=== PATIENT | male | born 1975 | race Caucasian/White ===

== ENCOUNTER 2019-02-18 22:13 | Emergency (ER) | payer OTHER, MEDICAID, SELFPAY ==
[2019-02-18 22:25] VITALS: BP 161/120; PULSE 98; RESP 17; TEMP 36.9; O2SAT 99; BMI 29.0
--- NOTE | 2019-02-18 22:45 | ED_ITS ---
HPI - Skin/Abscess/Foreign Bdy General Chief complaint: Skin/Abscess/Foreign Body Stated complaint: rash all over his body for several days Time Seen by Provider: 02/18/19 22:37 Source: patient Mode of arrival: Family Vehicle Limitations: no limitations History of Present Illness HPI narrative: 43-year-old otherwise healthy male here for evaluation of a rash. Patient states that his symptoms started a couple days ago on the been worsening since then. No new exposures that he knows of. No new medications. States the rash is itchy. It is on his body to include his torso and face and genital region and lower extremities. Has not tried anything for symptoms prior to arrival Related Data Previous Rx's Medication Instructions Recorded prednisone 40 mg PO DAILY 7 Days #14 tab 02/18/19 Review of Systems Eyes Eyes: Reports itchy eyes ENT Ears, Nose, Mouth, and Throat: Denies lip swelling, Denies throat swelling and Denies tongue swelling Cardiovascular Cardiovascular: Denies chest pain and Denies dyspnea Respiratory Respiratory: Denies dyspnea Gastrointestinal Gastrointestinal: Denies nausea and Denies vomiting Musculoskeletal Musculoskeletal: Denies myalgias and Denies arthralgias Integumentary/Breasts Skin/Breast: Reports pruritus, Reports lesions and Reports rash Neurologic Neurologic: Denies behavioral changes Psychiatric Psychiatric: Denies behavioral changes Hematologic/Lymphatic Hematologic/Lymphatic: Denies easy bleeding and Denies easy bruising Allergic/Immunologic Allergic/Immunologic: Denies urticaria, Reports itchy eyes, Denies lip swelling, Denies throat swelling and Denies tongue swelling Patient History Medical History (Reviewed 02/19/19 @ 01:58 PDT by Som Pantoja DO) Patient denies medical problems (Acute) Social History (Reviewed 02/19/19 @ 01:58 PDT by Som Pantoja DO) Smoking Status: Current every day smoker tobacco type: cigarettes Substance Use Type: marijuana Exam Initial Vital Signs Initial Vital Signs: Vital Signs Temperature 98.4 F 02/18/19 22:25 Pulse Rate 98 H 02/18/19 22:25 Respiratory Rate 17 02/18/19 22:25 Blood Pressure 161/120 H 02/18/19 22:25 Pulse Oximetry 99 02/18/19 22:25 Const General: cooperative, No comfortable (Uncomfortable), well developed and well groomed Orientation: alert, awake and oriented x3 HENMT Head: normal to inspection and normocephalic Resp Effort & Inspection: normal respiratory effort Auscultation: clear to auscultation bilaterally Cardio Rate: regular rate Rhythm: regular rhythm Skin Other: Rash located systemically. Some crusting. No urticaria. No vesicles. Neuro General: alert and awake Cognition: normal cognition Speech: speech normal Psych Appearance: grossly normal and well kempt Course Orders Ordered: Discontinued Medications Diphenhydramine HCl (Benadryl) 50 mg IV NOW ONE Stop: 02/18/19 22:46 Last Admin: 02/18/19 23:22 Dose: Not Given Documented by: ROSHAN Diphenhydramine HCl (Benadryl) 50 mg PO NOW ONE Stop: 02/18/19 23:10 Last Admin: 02/18/19 23:11 Dose: 50 mg Documented by: ROSHAN Methylprednisolone (Solu-Medrol 125 Mg Vial) 125 mg IV NOW ONE Stop: 02/18/19 22:46 Last Admin: 02/18/19 23:22 Dose: Not Given Documented by: ROSHAN Prednisone (Deltasone) 40 mg PO NOW ONE Stop: 02/18/19 23:10 Last Admin: 02/18/19 23:11 Dose: 40 mg Documented by: ROSHAN Vital Signs Vital signs: Vital Signs - 8 hr 02/18/19 22:25 02/19/19 00:08 Temperature 98.4 F 98.0 F Pulse Rate 98 H 82 Respiratory Rate 17 16 Blood Pressure 161/120 H 112/69 Pulse Oximetry 99 96 MDM - Skin/Abscess/Foreign Bdy MDM Narrative Medical decision making narrative: Patient with systemic rash however is not located on the mucous membranes. Does not fit any specific pattern to include Lyme disease, [place] spotted fever, measles, chickenpox, zoster. Unable to obtain an IV on the patient so he was given oral Benadryl and steroids. This seemed to improve his itching quite a bit. Will send home with a short course of steroids. Feel there is no indication for antibiotics. Patient expressed understanding and agreement with plan. Discharge Plan Departure Patient Disposition: Home Clinical Impression: Rash Discharge Date/Time: 02/19/19 00:10 Instructions: DI for Rash Activity Restrictions/Additional Instructions: Take the steroids as directed. If you are interested you can contact [phone] to help you establish a primary provider here in the area. Return to the emergency department for any new or worsening symptoms Prescriptions: New prednisone 20 mg tablet 40 mg PO DAILY 7 Days Qty: 14 RF: 0
[2019-02-18] MEDS: diphenhydrAMINE 25 MG TABLET 50 MG PO (23:11)
[2019-02-18] MEDS: predniSONE 20 MG TABLET 40 MG PO (23:11)
--- NOTE | 2019-02-18 23:21 | PC.NURSE ---
Mitzy RN attempted 3x for IV access. This RN did not see anything confident in attempting to place IV in. Patient states he is generally a hard IV start. Provider aware of difficulty obtaining IV. Orders changed to oral medications
[2019-02-19 00:08] VITALS: BP 112/69; PULSE 82; RESP 16; TEMP 36.7; O2SAT 96
== END 2019-02-19 00:10 | disposition home or self-care (01) ==
PROVIDERS: Emergency Provider Emergency Medicine
DX: R21 Rash and other nonspecific skin eruption (principal)
CPT/HCPCS: 99282; 99283

== ENCOUNTER 2019-02-26 01:56 | Emergency (ER) | payer OTHER, MEDICAID, SELFPAY ==
[2019-02-26 02:04] VITALS: BP 145/94; PULSE 105; RESP 16; TEMP 36.6; O2SAT 100; BMI 29.0
--- NOTE | 2019-02-26 02:27 | ED_ITS ---
HPI - Skin/Abscess/Foreign Bdy General Chief complaint: Skin/Abscess/Foreign Body Stated complaint: 103 temp last night, rash all over Time Seen by Provider: 02/26/19 01:59 Source: patient Mode of arrival: Ambulatory Limitations: no limitations History of Present Illness HPI narrative: 43-year-old male smoker with history of IV drug abuse presents with his significant other and a chief complaint of a red, painful, swollen rash on the medial aspect of his right leg which popped up yesterday. Additionally he has some painful lymph nodes in his right groin and had a fever as high as 103 yesterday. He has taken no medications today and temperature is 97?. He does feel largely better but wanted to be checked out. He denies any runny nose, sore throat or cough. He has had no nausea or vomiting. He was seen recently for an itchy rash and had been given prednisone complaint: rash and discoloration Onset (ago): hour(s) Tetanus up to date: yes Location: RLE Severity: moderate Quality: aching Pain Consistency: constant Relieving factors: none Exacerbating factors: movement Associated symptoms: fever Related Data Previous Rx's Medication Instructions Recorded prednisone 40 mg PO DAILY 7 Days #14 tab 02/18/19 doxycycline hyclate 100 mg PO BID #20 tab 02/26/19 Allergies Allergy/AdvReac Type Severity Reaction Status Date / Time No Known Drug Allergies Allergy Verified 02/26/19 02:09 Review of Systems Constitutional Constitutional: Reports chills, Reports fever(s), Denies frequent falls, Denies lethargy and Denies weakness Eyes Eyes: Denies change in vision, Denies eye discharge, Denies irritation and Denies loss of vision ENT Ears, Nose, Mouth, and Throat: Denies change in voice, Denies dizziness, Denies neck pain, Denies sore throat and Denies throat swelling Cardiovascular Cardiovascular: Denies chest pain, Denies irregular heart rhythm, Denies lightheadedness, Denies palpitations, Denies dyspnea, Denies dyspnea on exertion and Denies orthopnea Respiratory Respiratory: Denies cough, Denies dyspnea, Denies dyspnea on exertion and Denies wheezing Gastrointestinal Gastrointestinal: Denies abdominal pain, Denies change in bowel habits, Denies diarrhea, Denies nausea and Denies vomiting Genitourinary Genitourinary: Denies hematuria, Denies flank pain, Denies urinary incontinence and Denies urinary urgency Musculoskeletal Musculoskeletal: Denies back pain, Denies muscle weakness, Denies neck pain, Denies numbness and Denies tingling Integumentary/Breasts Skin/Breast: Reports pruritus, Reports erythema, Reports rash, Reports skin p ain, Reports skin swelling and Denies wounds Neurologic Neurologic: Denies behavioral changes, Denies confusion, Denies dizziness, Denies frequent falls, Denies loss of vision, Denies numbness, Denies tingling and Denies weakness Psychiatric Psychiatric: Denies anxiety, Denies behavioral changes, Denies confusion, Denies depression, Denies homicidal ideation and Denies suicidal ideation Endocrine Endocrine: Denies flushing and Denies palpitations Hematologic/Lymphatic Hematologic/Lymphatic: Denies easy bruising Allergic/Immunologic Allergic/Immunologic: Denies urticaria, Denies throat swelling and Denies wheezing Patient History Medical History Patient denies medical problems (Acute) Social History Smoking Status: Current every day smoker tobacco type: cigarettes Substance Use Type: marijuana Exam Narrative Exam Narrative: GENERAL: [43] year old patient appears stated age. Well- nourished, well-developed patient, in mild distress. HEAD: Atraumatic. Normocephalic. EYES: Pupils equal round and reactive. Extraocular motions intact. No scleral icterus. No injection or drainage. ENT: Nose without bleeding, purulent drainage. Throat without erythema, tonsillar hypertrophy or exudate. Airway patent. NECK: Trachea midline. Non tender CARDIOVASCULAR: Regular rate and rhythm without murmurs, gallops, or rubs. RESPIRATORY: Clear to auscultation. Breath sounds equal bilaterally. No wheezes, rales, or rhonchi. GASTROINTESTINAL: Abdomen soft, non-tender, nondistended. EXTREMITIES: No edema or joint tenderness. BACK: Nontender without deformity or crepitance. No flank tenderness. NEURO: AOx3. SKIN: Pruritic maculopapular rash most notable on dorsal aspect of bilateral upper extremities. Additional area of erythema, warmth and tenderness the medial aspect of right calf, no fluctuance. No pain in posterior calf. Sensation and pulses intact Initial Vital Signs Initial Vital Signs: Vital Signs Temperature 97.8 F 02/26/19 02:04 Pulse Rate 105 H 02/26/19 02:04 Respiratory Rate 16 02/26/19 02:04 Blood Pressure 145/94 H 02/26/19 02:04 Pulse Oximetry 100 02/26/19 02:04 Course Orders Ordered: ED Orders 02/26/19 03:20 Blood Culture Stat Complete Blood Count AUTO DIFF Stat Comprehensive Metabolic Panel Stat Lactate (Lactic Acid) Stat Procalcitonin Stat Discontinued Medications Doxycycline Hyclate (Vibramycin) 100 mg PO NOW ONE Stop: 02/26/19 04:16 Last Admin: 02/26/19 04:17 Dose: 100 mg Documented by: TATE Sodium Chloride (Normal Saline 0.9%) 1,000 mls @ 1,000 mls/hr IV BOLUS ONE Stop: 02/26/19 03:08 Vital Signs Vital signs: Vital Signs - 8 hr 02/26/19 02:04 Temperature 97.8 F Pulse Rate 105 H Respiratory Rate 16 Blood Pressure 145/94 H Pulse Oximetry 100 MDM - Skin/Abscess/Foreign Bdy Lab Data Result diagrams: 02/26/19 03:20 02/26/19 03:20 Labs: Lab Results 02/26/19 02/26/19 02/26/19 Range/Units 03:20 03:20 03:20 WBC 9.6 (4.5-11.0) X10^3/uL RBC 5.08 (4.5-5.9) X10^6/uL Hgb 14.4 (13.5-17.5) g/dL Hct 42.0 (41-53) % MCV 82.6 (80-100) fL MCH 28.4 (26-34) PG MCHC 34.3 (30-36) % RDW 14.4 (11.6-14.8) % Plt Count 141 L (150-400) X10^3/uL Neut % (Auto) 57.7 (50-75) % Lymph % (Auto) 26.5 (25-40) % Cassia % (Auto) 12.4 (3-14) % Eos % (Auto) 2.3 (2-4) % Baso % (Auto) 1.1 (0-2) % Neut # (Auto) 5500 (6896-9329) /uL Lymph # (Auto) 2500 (5986-8292) /uL Cassia # (Auto) 1200 H (0-900) /uL Eos # (Auto) 200 (0-450) /uL Baso # (Auto) 100 (0-100) /uL Sodium 135 L (137-145) mmol/L Potassium 3.3 L (3.4-5.1) mmol/L Chloride 95 L (98-107) mmol/L Carbon Dioxide 31 (22-32) mmol/L BUN 22 H (9-20) mg/dL Creatinine 0.80 (0.66-1.25) mg/dL Estimated GFR > 60.0 (>60) mL/min BUN/Creatinine Ratio 27.5 H (6-22) Glucose 99 (70-100) mg/dL Lactate (0.7-2.1) mmol/L Calcium 9.1 (8.4-10.2) mg/dL Total Bilirubin 0.8 (0.2-1.3) mg/dL AST 48 (17-59) IU/L ALT 61 H (<50) IU/L Alkaline Phosphatase 54 (38-126) U/L Total Protein 7.6 (6.3-8.2) g/dL Albumin 4.3 (3.5-5.0) g/dL Globulin 3.3 (1.7-4.1) g/dL Albumin/Globulin Ratio 1.3 (1.0-2.8) Procalcitonin 0.27 (<0.5) ng/mL 02/26/19 Range/Units 03:20 WBC (4.5-11.0) X10^3/uL RBC (4.5-5.9) X10^6/uL Hgb (13.5-17.5) g/dL Hct (41-53) % MCV (80-100) fL MCH (26-34) PG MCHC (30-36) % RDW (11.6-14.8) % Plt Count (150-400) X10^3/uL Neut % (Auto) (50-75) % Lymph % (Auto) (25-40) % Cassia % (Auto) (3-14) % Eos % (Auto) (2-4) % Baso % (Auto) (0-2) % Neut # (Auto) (2890-3648) /uL Lymph # (Auto) (5141-6945) /uL Cassia # (Auto) (0-900) /uL Eos # (Auto) (0-450) /uL Baso # (Auto) (0-100) /uL Sodium (137-145) mmol/L Potassium (3.4-5.1) mmol/L Chloride (98-107) mmol/L Carbon Dioxide (22-32) mmol/L BUN (9-20) mg/dL Creatinine (0.66-1.25) mg/dL Estimated GFR (>60) mL/min BUN/Creatinine Ratio (6-22) Glucose (70-100) mg/dL Lactate 1.4 (0.7-2.1) mmol/L Calcium (8.4-10.2) mg/dL Total Bilirubin (0.2-1.3) mg/dL AST (17-59) IU/L ALT (<50) IU/L Alkaline Phosphatase (38-126) U/L Total Protein (6.3-8.2) g/dL Albumin (3.5-5.0) g/dL Globulin (1.7-4.1) g/dL Albumin/Globulin Ratio (1.0-2.8) Procalcitonin (<0.5) ng/mL Discharge Plan Departure Patient Disposition: Home Clinical Impression: Rash Cellulitis Qualifiers: Site of cellulitis: extremity Site of cellulitis of extremity: lower extremity Laterality: right Qualified Code(s): L03.115 - Cellulitis of right lower limb Instructions: DI for Cellulitis -- Adult Activity Restrictions/Additional Instructions: *You have been diagnosed with [right lower extremity cellulitis] *What to do: *Take medications as directed: Consider taking [id number] Pepcid for the itching *Follow up with your primary care provider in 2-3 days, call for an appointment. Let them know you were seen in the Emergency Department and that we ask that you be seen in follow up *Return to ER if you should have any new, worsening or concerning symptoms Prescriptions: New doxycycline hyclate 100 mg tablet 100 mg PO BID Qty: 20 RF: 0 No Action prednisone 20 mg tablet 40 mg PO DAILY 7 Days Qty: 14 RF: 0
--- NOTE | 2019-02-26 03:25 | PC.NURSE ---
IV start attempted x 4 without success. Pt state he has hx of IVDA and is a very difficult stick. Dr Parker aware, playground attendant now at bedside attempting to get blood for labs.
[2019-02-26 03:45] LABS: Add Manual Diff / Slide Review NO; Basophils Absolute Auto 100 /uL (0-100); Basophils Percent Auto 1.1 % (0-2); Eosinophils Absolute Auto 200 /uL (0-450); Eosinophils Percent Auto 2.3 % (2-4); Hemoglobin 14.4 g/dL (13.5-17.5); Lymphocytes Absolute Auto 2500 /uL (1100-4500); Lymphocytes Percent Auto 26.5 % (25-40); Mean Corpuscular HGB Conc 34.3 % (30-36); Mean Corpuscular Hemoglobin 28.4 PG (26-34); Mean Corpuscular Volume 82.6 fL (80-100); Monocytes Absolute Auto 1200 /uL (0-900); Monocytes Percent Auto 12.4 % (3-14); Neutrophils Absolute Auto 5500 /uL (1500-7000); Neutrophils Percent Auto 57.7 % (50-75); Platelet Count 141 X10^3/uL (150-400); Red Blood Cell Count 5.08 X10^6/uL (4.5-5.9); Red Cell Distribution Width 14.4 % (11.6-14.8); White Blood Cell Count 9.6 X10^3/uL (4.5-11.0)
[2019-02-26 03:54] LABS: Alanine Aminotransferase 61 IU/L (<50); Albumin 4.3 g/dL (3.5-5.0); Albumin Globulin Ratio 1.3 (1.0-2.8); Alkaline Phosphatase 54 U/L (38-126); Aspartate Aminotransferase 48 IU/L (17-59); BUN Creatinine Ratio 27.5 (6-22); Bilirubin Total 0.8 mg/dL (0.2-1.3); Blood Urea Nitrogen 22 mg/dL (9-20); Calcium 9.1 mg/dL (8.4-10.2); Carbon Dioxide 31 mmol/L (22-32); Chloride 95 mmol/L (98-107); Estimated Glomerular Filt Rate > 60.0 mL/min (>60); Globulin 3.3 g/dL (1.7-4.1); Glucose 99 mg/dL (70-100); HEMOLYSIS < 15 (0-50); Potassium 3.3 mmol/L (3.4-5.1); Sodium 135 mmol/L (137-145); Total Protein 7.6 g/dL (6.3-8.2)
[2019-02-26 04:00] LABS: Lactate (Lactic Acid) 1.4 mmol/L (0.7-2.1)
[2019-02-26 04:12] LABS: Procalcitonin 0.27 ng/mL (<0.5)
[2019-02-26] MEDS: DOXYCYCLINE HYCLATE 100 MG TABLET PO (04:17)
[2019-02-26 04:18] VITALS: BP 117/73; PULSE 75; RESP 16; O2SAT 96
== END 2019-02-26 04:18 | disposition home or self-care (01) ==
PROVIDERS: Emergency Provider Emergency Medicine
DX: R21 Rash and other nonspecific skin eruption (principal); L03.115 Cellulitis of right lower limb; R50.9 Fever, unspecified
CPT/HCPCS: 36415; 80053; 83605; 84145; 85025; 87040; 99282; 99283

== ENCOUNTER 2019-06-23 22:18 | Emergency (ER) | payer OTHER, MEDICAID, SELFPAY ==
[2019-06-23 22:21] VITALS: BP 155/92; PULSE 82; RESP 14; TEMP 37.2; O2SAT 99
== END 2019-06-24 02:58 | disposition left against medical advice (07) ==
PROVIDERS: Emergency Provider Emergency Medicine
CPT/HCPCS: 99281

== ENCOUNTER 2021-09-23 06:26 | Emergency (ER) | payer OTHER, MEDICAID, SELFPAY ==
[2021-09-23 06:29] VITALS: BP 143/94; PULSE 78; RESP 17; TEMP 36.3; O2SAT 99; BMI 29.0
--- NOTE | 2021-09-23 07:06 | ED_ITS ---
HPI - Eye Problem General Chief complaint: Eye Problems Stated complaint: metal in left eye Time Seen by Provider: 09/23/21 07:06 Source: patient Mode of arrival: Ambulatory Limitations: no limitations History of Present Illness HPI Narrative: This is a 45-year-old male with concern for metal in his left eye. Patient was grinding metal last night. He states he can see 2 small spots in his left eye over the iris region. He has had this happen in the past. He was not wearing any eye protection today. He has had to metal rest ring ground out in the past with an print line feeder. He states that it was not painful at 1st he thought he got it out but then became uncomfortable and painful overnight. Patient states his tetanus is up-to-date. He denies other medical issues. He does use tobacco, occasional alcohol, positive for illicit. Patient states this was at home and not at his work. He denies any allergies to medications. Related Data Previous Rx's Medication Instructions Recorded doxycycline hyclate 100 mg tablet 100 mg PO BID #20 tab 02/26/19 ofloxacin 0.3 % eye drops 2 drp EYE-LEFT Q4HR 7 Days #5 ml 09/23/21 Allergies Allergy/AdvReac Type Severity Reaction Status Date / Time No Known Drug Allergies Allergy Verified 02/26/19 02:09 Review of Systems Review of Systems ROS Unobtainable: All systems reviewed & are unremarkable except as noted in HPI and below Patient History Medical History (Updated 09/23/21 @ 07:53 by Cristina Sy DO) Patient denies medical problems Social History Smoking Status: Current every day smoker Smoking Status: Current every day smoker tobacco type: cigarettes alcohol intake frequency: 0-2 drinks per day Substance Use Type: marijuana Exam Narrative Exam Narrative: GEN: well nourished, well appearing male, alert and oriented x 3, patient appears to be in mild distress. HEENT: Atraumatic, pupils are equal round reactive to light, extraocular movements are intact, nares are clear, TMs are clear with no fluid, there is no conjunctival pallor. Throat is clear without any exudates, erythema, tonsillar enlargement or uvular deviation Visual acuity: right [20/100], left 20/50 without correction. General: no globe trauma Eyelids: normal inspection, eyelids everted for exam on left. Conjunctiva/Sclera: normal inspection Corneas: normal inspection, examined with fluroscein on left, + for uptake on left with abrasions, patient has metallic foreign body at the 9 o'clock position with 2 very small foreign bodies at the 10 o'clock position. EOM: intact, no palsy/entrapment Pupils: PERRL, normal accomadation, pupil normal Anterior Chambers: normal inspection, no hypema Posterior: normal fundoscopic on left MSCL: full range of motion, normal gait NEURO:CN 2-12 intact, sensation normal Initial Vital Signs Initial Vital Signs: Vital Signs Temperature 97.4 F L 09/23/21 06:29 Pulse Rate 78 09/23/21 06:29 Respiratory Rate 17 09/23/21 06:29 Blood Pressure 143/94 H 09/23/21 06:29 Pulse Oximetry 99 09/23/21 06:29 Procedures Foreign Body EYE Time of procedure: 07:30 Time Out performed: Yes Location: eye (L) Topical anesthetic used: proparacaine Foreign body: metal Evidence of corneal penetration: No Technique: needle Procedure performed under: slit-lamp Post-procedure medication: ophthalmic antibiotic (rx given. hospital out of stock.) Patient tolerated procedure: well Complications: residual rust ring Course Orders Ordered: Discontinued Medications Fluorescein Sodium (Fluorescein 1 Mg Strip) 1 mg EYE-LEFT NOW ONE Stop: 09/23/21 06:31 Last Admin: 09/23/21 07:26 Dose: 1 mg Documented by: BECKI Proparacaine HCl (Proparacaine 0.5% Ophth Sherrell) 1 drops EYE-LEFT NOW ONE Stop: 09/23/21 06:30 Last Admin: 09/23/21 07:27 Dose: 1 drop Documented by: BECKI Consultations Consultation #1: Dr. Yap, will see patient in office. They can stop by or call for an appointment. Time: 09:13 Vital Signs Vital signs: Vital Signs - 8 hr 09/23/21 06:29 Temperature 97.4 F L Pulse Rate 78 Respiratory Rate 17 Blood Pressure 143/94 H Pulse Oximetry 99 MDM - Eye Problem MDM Narrative Medical decision making narrative: This is a 45-year-old male with metallic foreign body in the left eye. Patient had 2 small possibly metallic versus other foreign bodies that were also removed easily with a Q-tip. Foreign body was removed with needle, there is a small rust ring. Patient does have changed his visual acuity on exam, he has had prior issues in the past. He does not use contacts but does wear glasses for driving at night. He states tetanus is up-to-date. Patient was given antibiotic prescription and referral to Ophthalmology today for rust ring removal. Discharge Plan Departure Patient Disposition: Home Clinical Impression: Foreign body, eye Qualifiers: Encounter type: initial encounter Laterality: left Qualified Code(s): T15.92XA - Foreign body on external eye, part unspecified, left eye, initial encounter Instructions: How to Get a Foreign Body Out of Your Eye Activity Restrictions/Additional Instructions: Follow up with ophthalmology to have the rust ring removed. You can call for stop by the office this morning after 9:00 a.m it is on the opposite end of the hospital close to the front entrance. You were able to successfully remove the foreign body in your eye but there is residual rust ring that would benefit from being removed. Use antibiotic eye drops, 1-2 drops every 3-4 hours while awake at least 4 times daily x 7 days. You can take Tylenol and/or ibuprofen as needed pain. Prescription included with discharge paperwork Please return for increasing pain, decreasing vision, drainage, swelling of the eyelid, eye or other new or concerning changes. Prescriptions: New ofloxacin 0.3 % drops 2 drp EYE-LEFT Q4HR 7 Days Qty: 5 0RF No Action doxycycline hyclate 100 mg tablet 100 mg PO BID Qty: 20 0RF Referrals: Rupesh Figueroa MD [Physician] - Visit Report Forms: Patient Portal/API
[2021-09-23] MEDS: FLUORESCEIN 1 MG STRIP EYE-LEFT (07:26)
[2021-09-23] MEDS: PROPARACAINE 0.5% OPHTH SOL 1 DROPS EYE-LEFT (07:27)
== END 2021-09-23 08:01 | disposition home or self-care (01) ==
PROVIDERS: Emergency Provider Emergency Medicine
DX: T15.92XA Foreign body on external eye, part unspecified, left eye, initial encounter (principal); W45.8XXA Other foreign body or object entering through skin, initial encounter
CPT/HCPCS: 65222; 99282; 99283